=== PATIENT | female | born 1945 | race African-American/Black ===

== ENCOUNTER 2016-06-15 05:55 | Inpatient (IN) | payer MEDICARE ==
[~2016-06-15] VITALS: Ht 157.5 cm; Wt 37.4 kg
[2016-06-15] MEDS ORDERED: METHYLPRED SOD SUCC 125 MG/2 ML VIAL ONE (06:38)
[2016-06-15] MEDS ORDERED: DUONEB INH ONE ×2 (06:48→07:31)
[2016-06-15] MEDS ORDERED: KCL CR 20 MEQ TAB PO ONE (07:26)
[2016-06-15] MEDS ORDERED: CEFTRIAXONE 1 GM VIAL ONE (07:27)
[2016-06-15] MEDS ORDERED: SODIUM CHLORIDE 0.9% 100 ML IV ONE (07:27)
[2016-06-15] MEDS ORDERED: cloNIDine 0.1 MG TAB ONE (07:27)
[2016-06-15] MEDS ORDERED: POTASSIUM CHLOR 10MEQ -ED ONLY 100 ML IV ONE (07:27)
[2016-06-15] MEDS ORDERED: SALINE FLUSH 10 ML FLUSH PRN (12:15)
[2016-06-15] MEDS: DUONEB INH SCH ×4 (12:15→23:21)
[2016-06-15 15:28] VITALS: RESP 22
[2016-06-15 16:03] VITALS: BP_SYST 170; RESP 18; TEMP 97.3
[2016-06-15 16:04] VITALS: BMI 15.1
[2016-06-15] MEDS: ENOXAPARIN 40 MG/0.4 ML SYR SUBQ SCH (16:04)
[2016-06-15] MEDS: METHYLPRED SOD SUCC 125 MG/2 ML VIAL IV SCH ×3 (16:04→23:37)
[2016-06-15 19:52] VITALS: BP_SYST 166; RESP 20; TEMP 98
[2016-06-15] MEDS: SALINE FLUSH 10 ML FLUSH SCH (20:39)
[2016-06-15 23:10] VITALS: BP_SYST 182; RESP 20; TEMP 98.1
[2016-06-16] VITALS (8 sets, daily range): BP systolic 162–230; RESP 16–22; TEMP 97.6–98.6; Ht 157.5 cm; Wt 37.4 kg
[2016-06-16] MEDS: METHYLPRED SOD SUCC 125 MG/2 ML VIAL IV SCH ×3 (05:06→17:58)
[2016-06-16] MEDS: SODIUM CHLORIDE 0.9% FLUSH BAG 500 ML IV SCH (05:06)
[2016-06-16] MEDS: DUONEB INH SCH ×4 (08:07→22:44)
[2016-06-16] MEDS: SALINE FLUSH 10 ML FLUSH SCH ×2 (08:17→21:07)
[2016-06-16] MEDS: KCL CR 10 MEQ TAB PO SCH ×2 (08:17→21:06)
[2016-06-16] MEDS: TRIAMTER/HCTZ 37.5/25MG TAB PO SCH (08:17)
[2016-06-16] MEDS: CEFTRIAXONE 1 GM in SODIUM CHLORIDE 0.9% 50 ML IV SCH (08:17)
[2016-06-16] MEDS: ENOXAPARIN 40 MG/0.4 ML SYR SUBQ SCH (08:18)
[2016-06-16] MEDS ORDERED: LORAZEPAM 2 MG/ML VIAL ONE (22:26)
[2016-06-16] MEDS ORDERED: cloNIDine 0.2 MG TAB PO STA (22:32)
[2016-06-16] MEDS ORDERED: Furosemide 40 MG/4 ML VIAL IV STA (22:34)
[2016-06-16] MEDS ORDERED: MORPHINE 2 MG/ML SYR IV STA (22:36)
[2016-06-16] MEDS ORDERED: MORPHINE 2 MG/ML SYR ONE (22:37)
[2016-06-16] MEDS ORDERED: LORAZEPAM 2 MG/ML VIAL IV ONE (22:45)
[2016-06-16] MEDS ORDERED: LORAZEPAM 2 MG/ML VIAL IV PRN (23:55)
[2016-06-17] VITALS (26 sets, daily range): BP systolic 128–203; RESP 16–32; TEMP 97.3–97.8
[2016-06-17] MEDS ORDERED: METHYLPRED SOD SUCC 40 MG VIAL IV SCH
[2016-06-17] MEDS: LABETALOL 100 MG/20 ML VIAL IV PUSH PRN ×3 (00:15→20:20)
[2016-06-17] MEDS: SODIUM CHLORIDE 0.9% FLUSH BAG 500 ML IV SCH (05:41)
[2016-06-17] MEDS: METHYLPRED SOD SUCC 40 MG VIAL IV SCH ×2 (06:36→12:43)
[2016-06-17] MEDS: NEB-BROVANA 15 MCG/2 ML INH SCH ×2 (08:01→20:20)
[2016-06-17] MEDS: ENOXAPARIN 40 MG/0.4 ML SYR SUBQ SCH (08:20)
[2016-06-17] MEDS: TRIAMTER/HCTZ 37.5/25MG TAB PO SCH (08:20)
[2016-06-17] MEDS: KCL CR 10 MEQ TAB PO SCH ×2 (08:20→20:18)
[2016-06-17] MEDS: SALINE FLUSH 10 ML FLUSH SCH ×2 (08:21→20:18)
[2016-06-17] MEDS ORDERED: MISSING DOSE XX ONE (08:25)
[2016-06-17] MEDS: CEFTRIAXONE 1 GM in SODIUM CHLORIDE 0.9% 50 ML IV SCH (09:25)
[2016-06-17] MEDS ORDERED: PREDNISONE 20 MG TAB PO ONE (17:30)
[2016-06-17] MEDS: amLODIPine 5 MG TAB PO SCH (21:08)
[2016-06-18 03:34] VITALS: BP_SYST 157; RESP 18; TEMP 97.7
[2016-06-18] MEDS: SODIUM CHLORIDE 0.9% FLUSH BAG 500 ML IV SCH (05:02)
[2016-06-18 07:32] VITALS: BP_SYST 204; RESP 18; TEMP 97.6
[2016-06-18] MEDS: NEB-BROVANA 15 MCG/2 ML INH SCH ×2 (07:38→19:17)
[2016-06-18] MEDS: NEB-XOPENEX 0.63 MG/3 ML INH PRN ×4 (07:46→19:17)
[2016-06-18] MEDS ORDERED: PREDNISONE 50 MG TAB PO SCH (09:00)
[2016-06-18] MEDS: SALINE FLUSH 10 ML FLUSH SCH ×2 (09:26→19:34)
[2016-06-18] MEDS: CEFTRIAXONE 1 GM in SODIUM CHLORIDE 0.9% 50 ML IV SCH (09:26)
[2016-06-18] MEDS: ENOXAPARIN 40 MG/0.4 ML SYR SUBQ SCH (09:27)
[2016-06-18] MEDS: amLODIPine 5 MG TAB PO SCH (09:27)
[2016-06-18] MEDS: TRIAMTER/HCTZ 37.5/25MG TAB PO SCH (09:27)
[2016-06-18] MEDS: KCL CR 10 MEQ TAB PO SCH ×2 (09:27→19:33)
[2016-06-18] MEDS: LABETALOL 100 MG/20 ML VIAL IV PUSH PRN ×3 (09:28→20:32)
[2016-06-18] MEDS ORDERED: amLODIPine 5 MG TAB PO ONE (10:05)
[2016-06-18 11:23] VITALS: BP_SYST 190; RESP 16; TEMP 97.5
[2016-06-18 15:22] VITALS: BP_SYST 208; RESP 18; TEMP 97.5
[2016-06-18 20:13] VITALS: BP_SYST 204; RESP 19; TEMP 98.2
[2016-06-18 23:34] VITALS: BP_SYST 172; RESP 18; TEMP 97.9
[2016-06-19] VITALS (7 sets, daily range): BP systolic 158–190; RESP 14–24; TEMP 97.2–98.6
[2016-06-19] MEDS: LABETALOL 100 MG/20 ML VIAL IV PUSH PRN ×2 (03:29→12:27)
[2016-06-19] MEDS: SODIUM CHLORIDE 0.9% FLUSH BAG 500 ML IV SCH (05:01)
[2016-06-19] MEDS: NEB-BROVANA 15 MCG/2 ML INH SCH ×2 (06:45→18:08)
[2016-06-19] MEDS: NEB-XOPENEX 0.63 MG/3 ML INH PRN ×3 (06:45→14:36)
[2016-06-19] MEDS: ENOXAPARIN 40 MG/0.4 ML SYR SUBQ SCH (09:23)
[2016-06-19] MEDS: amLODIPine 10 MG TAB PO SCH (09:25)
[2016-06-19] MEDS: TRIAMTER/HCTZ 37.5/25MG TAB PO SCH (09:25)
[2016-06-19] MEDS: PREDNISONE 10 MG TAB PO SCH (09:25)
[2016-06-19] MEDS: CEFUROXIME 250 MG TAB PO SCH ×2 (09:25→20:07)
[2016-06-19] MEDS: SALINE FLUSH 10 ML FLUSH SCH ×2 (09:26→20:06)
[2016-06-19] MEDS: KCL CR 10 MEQ TAB PO SCH ×2 (09:26→20:08)
[2016-06-19] MEDS: LORAZEPAM 0.5 MG TAB PO SCH ×2 (17:13→20:06)
[2016-06-19] MEDS: DUONEB INH PRN ×2 (18:08→22:19)
[2016-06-20 03:41] VITALS: BP_SYST 170; RESP 12; TEMP 98.6
[2016-06-20] MEDS: LABETALOL 100 MG/20 ML VIAL IV PUSH PRN (03:57)
[2016-06-20] MEDS: SODIUM CHLORIDE 0.9% FLUSH BAG 500 ML IV SCH (05:58)
[2016-06-20] MEDS: DUONEB INH PRN ×5 (07:48→23:00)
[2016-06-20] MEDS: NEB-BROVANA 15 MCG/2 ML INH SCH ×2 (07:48→19:50)
[2016-06-20 07:49] VITALS: BP_SYST 180; RESP 22; TEMP 97.4
[2016-06-20] MEDS: SALINE FLUSH 10 ML FLUSH SCH ×2 (08:30→22:51)
[2016-06-20] MEDS: KCL CR 10 MEQ TAB PO SCH ×2 (08:31→22:52)
[2016-06-20] MEDS: LORAZEPAM 0.5 MG TAB PO SCH ×3 (08:31→22:51)
[2016-06-20] MEDS: CEFUROXIME 250 MG TAB PO SCH ×2 (08:31→22:51)
[2016-06-20] MEDS: PREDNISONE 10 MG TAB PO SCH (08:32)
[2016-06-20] MEDS: TRIAMTER/HCTZ 37.5/25MG TAB PO SCH (08:32)
[2016-06-20] MEDS: amLODIPine 10 MG TAB PO SCH (08:32)
[2016-06-20] MEDS: ENOXAPARIN 40 MG/0.4 ML SYR SUBQ SCH (08:33)
[2016-06-20] MEDS ORDERED: Furosemide 20 MG TAB PO SCH (09:00)
[2016-06-20 11:32] VITALS: BP_SYST 140; RESP 28; TEMP 97.9
[2016-06-20] MEDS: METOPROLOL XL 25 MG TAB PO SCH (15:24)
[2016-06-20 15:47] VITALS: BP_SYST 148; RESP 18; TEMP 98
[2016-06-20 20:25] VITALS: BP_SYST 140; RESP 18; TEMP 98.1
[2016-06-20] MEDS ORDERED: MISSING DOSE XX ONE (22:20)
[2016-06-20 22:57] VITALS: BP_SYST 130; RESP 22; TEMP 97.3
[2016-06-21 03:35] VITALS: BP_SYST 154; RESP 20; TEMP 98.2
[2016-06-21] MEDS: SODIUM CHLORIDE 0.9% FLUSH BAG 500 ML IV SCH (05:22)
[2016-06-21] MEDS: DUONEB INH PRN ×5 (07:00→22:17)
[2016-06-21] MEDS: NEB-BROVANA 15 MCG/2 ML INH SCH ×2 (07:00→18:49)
[2016-06-21 07:22] VITALS: BP_SYST 162; RESP 16; TEMP 98.1
[2016-06-21] MEDS ORDERED: MISSING DOSE XX ONE ×2 (09:05→09:35)
[2016-06-21] MEDS: amLODIPine 10 MG TAB PO SCH (09:28)
[2016-06-21] MEDS: PREDNISONE 10 MG TAB PO SCH (09:29)
[2016-06-21] MEDS: CEFUROXIME 250 MG TAB PO SCH ×2 (09:29→21:11)
[2016-06-21] MEDS: METOPROLOL XL 25 MG TAB PO SCH (09:29)
[2016-06-21] MEDS: LORAZEPAM 0.5 MG TAB PO SCH ×3 (09:29→21:11)
[2016-06-21] MEDS: KCL CR 10 MEQ TAB PO SCH ×2 (09:30→21:11)
[2016-06-21] MEDS: SALINE FLUSH 10 ML FLUSH SCH ×2 (09:31→21:11)
[2016-06-21] MEDS: ENOXAPARIN 40 MG/0.4 ML SYR SUBQ SCH (10:04)
[2016-06-21 11:39] VITALS: BP_SYST 146; RESP 16; TEMP 98
[2016-06-21 15:32] VITALS: BP_SYST 158; RESP 18; TEMP 98.3
[2016-06-21 19:12] VITALS: BP_SYST 140; RESP 18; TEMP 97.4
[2016-06-21 23:19] VITALS: BP_SYST 168; RESP 18; TEMP 98.5
[2016-06-22] MEDS: DUONEB INH PRN ×6 (02:42→22:36)
[2016-06-22 05:14] VITALS: BP_SYST 162; RESP 18; TEMP 98.3
[2016-06-22] MEDS: SODIUM CHLORIDE 0.9% FLUSH BAG 500 ML IV SCH (05:36)
[2016-06-22] MEDS: NEB-BROVANA 15 MCG/2 ML INH SCH ×2 (07:41→19:13)
[2016-06-22 07:47] VITALS: BP_SYST 153; RESP 18; TEMP 97.6
[2016-06-22] MEDS: CEFUROXIME 250 MG TAB PO SCH ×2 (08:56→21:42)
[2016-06-22] MEDS: SALINE FLUSH 10 ML FLUSH SCH ×2 (08:56→21:42)
[2016-06-22] MEDS: KCL CR 10 MEQ TAB PO SCH ×2 (08:56→21:42)
[2016-06-22] MEDS: LORAZEPAM 0.5 MG TAB PO SCH ×3 (08:56→21:43)
[2016-06-22] MEDS: amLODIPine 10 MG TAB PO SCH (08:57)
[2016-06-22] MEDS: METOPROLOL XL 25 MG TAB PO SCH (08:57)
[2016-06-22] MEDS: PREDNISONE 10 MG TAB PO SCH (08:57)
[2016-06-22] MEDS: ENOXAPARIN 40 MG/0.4 ML SYR SUBQ SCH (08:58)
[2016-06-22 11:31] VITALS: BP_SYST 148; RESP 18; TEMP 97.8
[2016-06-22 16:12] VITALS: BP_SYST 152; RESP 18; TEMP 97.6
[2016-06-22 20:28] VITALS: BP_SYST 151; RESP 22; TEMP 97.4
[2016-06-22 23:12] VITALS: BP_SYST 144; RESP 20; TEMP 98.2
[2016-06-23 04:20] VITALS: BP_SYST 154; RESP 20; TEMP 98
[2016-06-23] MEDS: SODIUM CHLORIDE 0.9% FLUSH BAG 500 ML IV SCH (06:00)
[2016-06-23] MEDS: DUONEB INH PRN ×2 (06:23→10:26)
[2016-06-23] MEDS: NEB-BROVANA 15 MCG/2 ML INH SCH (06:23)
[2016-06-23 07:24] VITALS: BP_SYST 176; BP_SYST 180; RESP 20; TEMP 97.5
[2016-06-23] MEDS: SALINE FLUSH 10 ML FLUSH SCH (10:26)
[2016-06-23] MEDS: amLODIPine 10 MG TAB PO SCH (10:26)
[2016-06-23] MEDS: PREDNISONE 10 MG TAB PO SCH (10:26)
[2016-06-23] MEDS: METOPROLOL XL 25 MG TAB PO SCH (10:26)
[2016-06-23] MEDS: LORAZEPAM 0.5 MG TAB PO SCH (10:26)
[2016-06-23] MEDS: CEFUROXIME 250 MG TAB PO SCH (10:26)
[2016-06-23] MEDS: ENOXAPARIN 40 MG/0.4 ML SYR SUBQ SCH (10:27)
[2016-06-23 11:01] VITALS: BP_SYST 152; RESP 20; TEMP 97.3
[2016-06-23 11:42] VITALS: BP_SYST 152; RESP 20; TEMP 97.3
== END 2016-06-23 12:45 | disposition home or self-care (01) | DRG 191 ==
LOC: ENRESERVTM → ENRESERV → ENRESERVDT → ER 05:55 → DELPENDDIS 12:28 → ENPENDDIS 12:28 → EMR 12:28 → 4NT 14:21 → CCU 06-16 22:48 → PCU 06-17 18:32 → 4NT 06-20 07:28
PROVIDERS: ADMIT Internal Medicine; ATTEND Internal Medicine
DX: J44.1 Chronic obstructive pulmonary disease with (acute) exacerbation (principal); I16.1 Hypertensive emergency; I10 Essential (primary) hypertension; F41.9 Anxiety disorder, unspecified; R00.0 Tachycardia, unspecified; R09.02 Hypoxemia; F17.210 Nicotine dependence, cigarettes, uncomplicated; Z80.3 Family history of malignant neoplasm of breast; E87.6 Hypokalemia; Z79.51 Long term (current) use of inhaled steroids
CPT/HCPCS: 36600; 71010; 80053; 82306; 82553; 82803; 82947; 83880; 83970; 84484; 85025; 93005; 94640; 94664; 94762; 94799; 96365; 96366; 96367; 96368; 96375